=== PATIENT | female | born 1990 | race Caucasian/White ===

== ENCOUNTER 2018-12-11 23:13 | Emergency (ER) | payer OTHER ==
[2018-12-11 23:23] VITALS: BP 119/82
--- NOTE | 2018-12-11 23:33 | ED Physician Documentation ---
PD HPI SKIN - Stated complaint Stated Complaint: FEM /LUMP ON SKIN/PX - Chief complaint Chief Complaint: Wound - History obtained from History obtained from: Patient - History of Present Illness Timing - onset: How many days ago (8) Timing - details: Gradual onset Location: Other (right buttock) Quality / character: Painful, Swelling Associated symptoms: No: Fever Recently seen: Not recently seen Review of Systems Constitutional: denies: Fever, Chills, Sweats Skin: reports: Lesions PD PAST MEDICAL HISTORY - Past Medical History Past Medical History: Yes Psych: Depression - Past Surgical History 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 - Present Medications Home Medications: Ambulatory Orders Medication Instructions Recorded Confirmed Doxycycline Hyclate [Vibramycin] 100 mg PO BID #19 capsule 12/11/18 FLUoxetine [PROzac] 20 mg PO DAILY 12/11/18 12/11/18 Hydrocodone/Acetaminophen 1 - 2 each PO Q6HR PRN #14 tablet 12/11/18 [Hydrocodone-Acetamin 5-325 mg] - Allergies Allergies/Adverse Reactions: Allergies Allergy/AdvReac Type Severity Reaction Status Date / Time No Known Drug Allergies Allergy Verified 12/11/18 23:24 - Social History Does the pt smoke?: No Smoking Status: Never smoker PD ED PE NORMAL - Vitals Vital signs reviewed: Yes - General General: Alert and oriented X 3, No acute distress, Well developed/nourished PD ED PE EXPANDED - Female Female visual: 1 - swelling, tenderness (tender, erythematous swelling without discharge, fluctuance, or palpable margins to suggest abscess) Results - Vitals Vitals: Vital Signs - 24 hr 12/11/18 23:18 Temperature 37.1 C Heart Rate 93 Blood Pressure 119/82 H O2 Saturation 99 Oxygen O2 Source Room air PD MEDICAL DECISION MAKING - ED course Complexity details: considered differential, d/w patient Departure - Departure Disposition: 01 Home, Self Care Clinical Impression: Abscess Condition: Good Instructions: ED Staph Infec Abx Tx Only Follow-Up: Carroll Goncalves MD [Primary Care Provider] - Within 3 Days Prescriptions: Hydrocodone/Acetaminophen [Hydrocodone-Acetamin 5-325 mg] 1 - 2 each PO Q6HR PRN #14 tablet PRN Reason: Pain Doxycycline Hyclate [Vibramycin] 100 mg PO BID #19 capsule Discharge Date/Time: 12/11/18 23:58
[2018-12-11] MEDS ORDERED: DOXYCYCLINE 100 MG TABLET PO STA (23:48)
[2018-12-11] MEDS ORDERED: HYDROcod/ACET 5/325 Prepack 4 PO STA (23:49)
== END 2018-12-11 23:58 | disposition home or self-care (01) ==
LOC: ED 23:13
DX: L02.31 Cutaneous abscess of buttock (principal)
CPT/HCPCS: 99282; 99283

== ENCOUNTER 2019-04-19 13:04 | Emergency (ER) | payer OTHER ==
[2019-04-19 13:33] LABS: BILIRUBIN,URINE NEGATIVE (NEGATIVE); GLUCOSE, URINE (UA) NEGATIVE (NEGATIVE); KETONES,URINE (UA) NEGATIVE (NEGATIVE); LEUKOCYTE ESTERASE, URINE MODERATE (NEGATIVE); NITRITE,URINE NEGATIVE (NEGATIVE); OCCULT BLOOD,URINE NEGATIVE (NEGATIVE); PROTEIN,URINE NEGATIVE (NEGATIVE); UROBILINOGEN,URINE 0.2 (NORMAL) E.U./dL (NORMAL)
[2019-04-19 13:42] LABS: CLARITY,URINE CLEAR (CLEAR)
[2019-04-19 13:43] LABS: BACTERIA,URINE Few /HPF (None Seen); RBC,URINE None Seen /HPF (0-5); SQUAMOUS EPITHELIAL CELL,UR MOD Squamous (<= Few)
--- NOTE | 2019-04-19 14:26 | ED Physician Documentation ---
PD HPI FEMALE - Stated complaint Stated Complaint: FEMALE - Chief complaint Chief Complaint: UTI - History obtained from History obtained from: Patient - History of Present Illness Timing - onset: How many days ago (2-3) Timing - details: Gradual onset Associated symptoms: Back pain, Vaginal discharge, Dysuria, Urinary frequency, Hematuria. No: Fever, Abdominal pain, Pelvic pain, Vaginal pain, Vaginal bleeding, Genital sore/lesion Contributing factors: No: Recently seen: Not recently seen - Additional information Additional information: This is a 28-year-old woman who presents with complaints that she thought she had a yeast infection because she was itchy and had a vaginal discharge about 6 days ago. She was trying to get into see her primary care provider but could not get an appointment and then she started developing increased urination frequency and low back pain in the right side that is now radiating to the left side and "throbbing". She seen a little bit of light pink in the urine which could be blood. Her last menstrual period was a couple of weeks ago and she denies stating that she has an IUD. She denies concern for STDs such as gonorrhea or chlamydia and declines testing for those infections. She is b een a little bit nauseous but no vomiting. Denies fever, cough or sore throat. Review of Systems Constitutional: denies: Fever Throat: denies: Sore throat Respiratory: denies: Cough GI: reports: Nausea. denies: Abdominal Pain, Vomiting : reports: Dysuria, Frequency, Hematuria, Discharge, LMP (2 weeks ago). 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 - Present Medications Home Medications: Ambulatory Orders Medication Instructions Recorded Confirmed Doxycycline Hyclate [Vibramycin] 100 mg PO BID #19 capsule 12/11/18 FLUoxetine [PROzac] 20 mg PO DAILY 12/11/18 12/11/18 Hydrocodone/Acetaminophen 1 - 2 each PO Q6HR PRN #14 tablet 12/11/18 [Hydrocodone-Acetamin 5-325 mg] Nitrofurantoin Monohyd/M-Cryst 100 mg PO BID #20 capsule 04/19/19 [Macrobid 100 mg Capsule] - Allergies Allergies/Adverse Reactions: Allergies Allergy/AdvReac Type Severity Reaction Status Date / Time No Known Drug Allergies Allergy Verified 04/19/19 13:10 - Social History Does the pt smoke?: No Smoking Status: Never smoker PD ED PE NORMAL - Vitals Vital signs reviewed: Yes - General General: Alert and oriented X 3, No acute distress, Well developed/nourished, Other (Obese 28-year-old.) - HEENT HEENT: Atraumatic, Other (No scleral icterus) - Abdomen Abdomen: Normal bowel sounds, Soft, Non tender - Back Back: No CVA TTP - Derm Derm: Normal color, Warm and dry, No rash - Psych Psych: Normal mood, Normal affect Results - Vitals Vitals: Vital Signs - 24 hr 04/19/19 04/19/19 13:10 15:23 Temperature 36.9 C Heart Rate 86 73 Respiratory 17 18 Rate Blood Pressure 124/57 L 130/64 O2 Saturation 99 99 Oxygen O2 Source Room air - Labs Labs: Laboratory Tests 04/19/19 04/19/19 13:26 13:26 Urine Color YELLOW Urine Clarity CLEAR Urine pH 7.0 Ur Specific [place] 1.015 1.015 Urine Protein NEGATIVE Urine Glucose (UA) NEGATIVE Urine Ketones NEGATIVE Urine Occult Blood NEGATIVE Urine Nitrite NEGATIVE Urine Bilirubin NEGATIVE Urine Urobilinogen 0.2 (NORMAL) Ur Leukocyte Esterase MODERATE H Urine RBC None Seen Urine WBC 11-25 H Ur Squamous Epith Cells MOD Squamous H Urine Bacteria Few Ur Microscopic Review INDICATED Urine Culture Comments NOT INDICATED Urine HCG, Qual NEGATIVE PD MEDICAL DECISION MAKING - ED course Complexity details: reviewed results, d/w patient ED course: The urinalysis was contaminated with squamous epithelial cells but there were 11-25 white blood cells per high-power field. She was not . Patient will be treated empirically with Macrobid twice daily for 10 days. Encouraged to drink lots of water and take ibuprofen if needed for pain. She should follow-up with her primary care provider to have the urine retested after finishing the antibiotics. Return if she has worsening back pain, fever, vomiting or other problems arise. She was offered gonorrhea and Chlamydia testing today which she has declined. Departure - Departure Disposition: 01 Home, Self Care Clinical Impression: Urinary tract infection Condition: Good Instructions: ED UTI Cystitis Female Follow-Up: Carroll Goncalves MD [Primary Care Provider] - Prescriptions: Nitrofurantoin Monohyd/M-Cryst [Macrobid 100 mg Capsule] 100 mg PO BID #20 capsule Comments: Drink lots of water. Take ibuprofen if needed for pain. Start the antibiotic today and take it twice a day for 10 days. Follow-up with your primary care provider to make sure that the infection has cleared and retest the urine after finishing the antibiotics. Follow-up sooner if you have increasing back pain, vomiting, fever or other problems arise. Discharge Date/Time: 04/19/19 15:23
[2019-04-19 14:57] LABS: HCG UR QUAL NEGATIVE
[2019-04-19 15:24] VITALS: BP 130/64
== END 2019-04-19 15:23 | disposition home or self-care (01) ==
LOC: ED 13:04
DX: N39.0 Urinary tract infection, site not specified (principal)
CPT/HCPCS: 81001; 81003; 81025; 87086; 99283

== ENCOUNTER 2019-06-07 11:46 | Emergency (ER) | payer OTHER ==
[2019-06-07] MEDS ORDERED: KETOROLAC 30 MG/ML VIAL IVP STA (13:03)
[2019-06-07] MEDS ORDERED: METOCLOPRAMIDE 10 MG/2 ML VIAL IVP STA (13:03)
[2019-06-07] MEDS ORDERED: SODIUM CHLORIDE 0.9% 1,000 ML IV ONE (13:03)
[2019-06-07] MEDS ORDERED: diphenhydrAMINE INJ 50 MG/ML VIAL IVP STA (13:03)
--- NOTE | 2019-06-07 13:06 | ED Physician Documentation ---
PD HPI HEADACHE - Stated complaint Stated Complaint: MIGRAINE/DIZZY - Chief complaint Chief Complaint: Neuro - History obtained from History obtained from: Patient (28-year-old woman with frequent migraines complains of almost a week of headache. The pain is typical but more severe than her usual headaches. She is tried Imitrex and Tylenol and Excedrin without relief. She denies fevers, chills, neck stiffness, body aches. She does comp jennifer of a whooshing in her left ear which is atypical for her headaches. 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 - Present Medications Home Medications: Ambulatory Orders Medication Instructions Recorded Confirmed Doxycycline Hyclate [Vibramycin] 100 mg PO BID #19 capsule 12/11/18 FLUoxetine [PROzac] 20 mg PO DAILY 12/11/18 12/11/18 Hydrocodone/Acetaminophen 1 - 2 each PO Q6HR PRN #14 tablet 12/11/18 [Hydrocodone-Acetamin 5-325 mg] Nitrofurantoin Monohyd/M-Cryst 100 mg PO BID #20 capsule 04/19/19 [Macrobid 100 mg Capsule] Butalb/Acetaminophen/Caffeine 1 each PO QID PRN #10 capsule 06/07/19 [Fioricet 50-300-40 mg Capsule] - Allergies Allergies/Adverse Reactions: Allergies Allergy/AdvReac Type Severity Reaction Status Date / Time No Known Drug Allergies Allergy Verified 06/07/19 11:59 - Social History Does the pt smoke?: No Smoking Status: Never smoker - Immunizations Immunizations are current?: Yes - POLST Patient has POLST: No PD ED PE NORMAL - Vitals Vital signs reviewed: Yes - General General: Alert and oriented X 3, Other (She appears uncomfortable, light sensitive) - HEENT HEENT: Other (Left TM is normal and there is no bruit in the neck) - Neck Neck: Supple, no meningeal sign - Cardiac Cardiac: RRR, No murmur - Respiratory Respiratory: No respiratory distress, Clear bilaterally - Abdomen Abdomen: Non tender - Derm Derm: Normal color, Warm and dry - Extremities Extremities: No edema, No calf tenderness / cord - Neuro Neuro: Alert and oriented X 3, No motor deficit, No sensory deficit, Normal speech Results - Vitals Vitals: Vital Signs - 24 hr 06/07/19 11:59 Temperature 36.6 C Heart Rate 69 Respiratory 16 Rate Blood Pressure 139/71 H O2 Saturation 98 Oxygen O2 Source Room air PD MEDICAL DECISION MAKING - ED course ED course: The headache is gradual in onset and similar to prior headaches. As such I doubt subarachnoid hemorrhage. There are no infectious symptoms such as fever or stiff neck to make me suspect meningitis. No carbon monoxide exposure by history. After the administration of Reglan, Toradol, Benadryl IV she was pain-free and her neck remained supple. Departure - Departure Disposition: 01 Home, Self Care Clinical Impression: Migraine Qualifiers: Migraine type: without aura Status migrainosus presence: with status migrainosus Intractability: not intractable Qualified Code(s): G43.001 - Migraine without aura, not intractable, with status migrainosus Condition: Good Record reviewed to determine appropriate education?: Yes Instructions: ED Headache Migraine Prescriptions: Butalb/Acetaminophen/Caffeine [Fioricet 50-300-40 mg Capsule] 1 each PO QID PRN #10 capsule PRN Reason: Headache Comments: Call your doctor to arrange a follow-up appointment, make the next available appointment. In the interim, return anytime if worse or if new symptoms develop.
[2019-06-07 14:17] VITALS: BP 133/67
== END 2019-06-07 14:17 | disposition home or self-care (01) ==
LOC: ED 11:46
DX: G43.001 Migraine without aura, not intractable, with status migrainosus (principal)
CPT/HCPCS: 96361; 96374; 96375; 99283; 99284; J1200; J2765

== ENCOUNTER 2020-02-20 11:45 | Emergency (ER) | payer OTHER ==
[2020-02-20] MEDS ORDERED: KETOROLAC 30 MG/ML VIAL IVP STA (12:09)
[2020-02-20] MEDS ORDERED: ONDANSETRON 4 MG/2 ML VIAL IVP STA (12:09)
--- NOTE | 2020-02-20 12:12 | ED Physician Documentation ---
PD HPI ABD PAIN - Stated complaint Stated Complaint: RT RIB PAIN - Chief complaint Chief Complaint: Abd Pain - History obtained from History obtained from: Patient - Additional information Additional information: About a weeks worth of generally worsening right upper quadrant pain that does not seem to change with eating, now with nausea. No history of abdominal surgeries. Pain radiates to the back a little bit. Review of Systems Ten Systems: 10 systems reviewed and negative Constitutional: denies: Fever, Chills Cardiac: denies: Chest pain / pressure, Palpitations Respiratory: denies: Dyspnea, Cough GI: reports: Abdominal Pain, Nausea. 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 - Present Medications Home Medications: Ambulatory Orders Medication Instructions Recorded Confirmed Doxycycline Hyclate [Vibramycin] 100 mg PO BID #19 capsule 12/11/18 FLUoxetine [PROzac] 20 mg PO DAILY 12/11/18 12/11/18 Hydrocodone/Acetaminophen 1 - 2 each PO Q6HR PRN #14 tablet 12/11/18 [Hydrocodone-Acetamin 5-325 mg] Nitrofurantoin Monohyd/M-Cryst 100 mg PO BID #20 capsule 04/19/19 [Macrobid 100 mg Capsule] Butalb/Acetaminophen/Caffeine 1 each PO QID PRN #10 capsule 06/07/19 [Fioricet 50-300-40 mg Capsule] Ondansetron Odt [Zofran] 4 mg TL Q6H PRN #10 tablet 02/20/20 Oxycodone HCl/Acetaminophen 1 - 2 each PO Q6H PRN #14 tablet 02/20/20 [Percocet 5-325 mg Tablet] - Allergies Allergies/Adverse Reactions: Allergies Allergy/AdvReac Type Severity Reaction Status Date / Time No Known Drug Allergies Allergy Verified 02/20/20 11:52 - Social History Does the pt smoke?: No Smoking Status: Never smoker - Immunizations Immunizations are current?: Yes - POLST Patient has POLST: No PD ED PE NORMAL - Vitals Vital signs reviewed: Yes - General General: Alert and oriented X 3, No acute distress - HEENT HEENT: PERRL, EOMI - Neck Neck: Supple, no meningeal sign, No bony TTP - Cardiac Cardiac: RRR, No murmur - Respiratory Respiratory: No respiratory distress, Clear bilaterally - Abdomen Abdomen: Soft, Other (TTP RUQ with pos [place]) - Back Back: No CVA TTP, No spinal TTP - Derm Derm: Normal color, Warm and dry - Extremities Extremities: No edema, No calf tenderness / cord - Neuro Neuro: Alert and oriented X 3 Results - Vitals Vitals: Vital Signs - 24 hr 02/20/20 02/20/20 02/20/20 11:49 12:42 13:26 Temperature 37.0 C Heart Rate 72 72 55 L Respiratory 18 16 15 Rate Blood Pressure 123/60 119/62 103/68 O2 Saturation 98 98 100 02/20/20 14:33 Temperature Heart Rate 54 L Respiratory 16 Rate Blood Pressure 98/65 O2 Saturation 96 Oxygen O2 Source Room air - Labs Labs: Laboratory Tests 02/20/20 02/20/20 02/20/20 12:04 12:20 12:20 WBC 5.8 RBC 4.39 Hgb 12.8 Hct 38.9 MCV 88.6 MCH 29.2 MCHC 32.9 RDW 14.4 Plt Count 290 MPV 10.2 Neut # (Auto) 3.3 Lymph # (Auto) 2.0 [place] # (Auto) 0.4 Eos # (Auto) 0.1 Baso # (Auto) 0.0 Absolute Nucleated RBC 0.00 Nucleated RBC % 0.0 Sodium 138 Potassium 3.9 Chloride 104 Carbon Dioxide 26 Anion Gap 8.0 BUN 16 Creatinine 0.8 Estimated GFR (MDRD) 86 L Glucose 97 Calcium 9.5 Total Bilirubin 0.6 AST 15 ALT 17 Alkaline Phosphatase 44 Total Protein 7.5 Albumin 4.3 Globulin 3.2 Albumin/Globulin Ratio 1.3 Lipase 44 Urine Color DARK YELLOW Urine Clarity SL. CLOUDY Urine pH 6.5 Ur Specific [place] 1.025 Urine Protein NEGATIVE Urine Glucose (UA) NEGATIVE Urine Ketones 15 H Urine Occult Blood NEGATIVE Urine Nitrite NEGATIVE Urine Bilirubin SMALL H Urine Urobilinogen 1 (NORMAL) Ur Leukocyte Esterase NEGATIVE Urine RBC None Seen Urine WBC 0-3 Ur Squamous Epith Cells MANY Squamous H Urine Bacteria Rare Ur Microscopic Review INDICATED Urine Culture Comments NOT INDICATED Urine HCG, Qual NEGATIVE - Rads (name of study) RUQ son Radiology: EMP read contemporaneously (NAD) PD MEDICAL DECISION MAKING - ED course ED course: 29yo F what seemed like gallbladder pain on the face of it, that said her labs and ultrasound were normal so this was followed up with an extended differential diagnosis including PE and other intra-abdominal abnormalities with a CTA of the chest and abdomen CT which were also negative. Departure - Departure Disposition: Home, Self Care Clinical Impression: Abdominal pain Qualifiers: Abdominal location: right upper quadrant Qualified Code(s): R10.11 - Right upper quadrant pain Condition: Good Record reviewed to determine appropriate education?: Yes Instructions: ED Abdominal Pain Unkn Cause Prescriptions: Oxycodone HCl/Acetaminophen [Percocet 5-325 mg Tablet] 1 - 2 each PO Q6H PRN #14 tablet PRN Reason: pain Ondansetron Odt [Zofran] 4 mg TL Q6H PRN #10 tablet PRN Reason: Nausea / Vomiting Comments: Return if pain does not improve quickly, Or for any new or worsening symptoms.
[2020-02-20 12:22] LABS: BILIRUBIN,URINE SMALL (NEGATIVE); GLUCOSE, URINE (UA) NEGATIVE (NEGATIVE); KETONES,URINE (UA) 15 mg/dL (NEGATIVE); LEUKOCYTE ESTERASE, URINE NEGATIVE (NEGATIVE); NITRITE,URINE NEGATIVE (NEGATIVE); OCCULT BLOOD,URINE NEGATIVE (NEGATIVE); PH,URINE 6.5 PH (5.0-7.5); PROTEIN,URINE NEGATIVE (NEGATIVE); UROBILINOGEN,URINE 1 (NORMAL) E.U./dL (NORMAL)
[2020-02-20 12:26] LABS: BASOPHILS % (AUTO) 0.3 %; EOSINOPHILS # (AUTO) 0.1 10^3/uL (0.0-0.7); EOSINOPHILS % (AUTO) 2.1 %; HGB - HEMOGLOBIN 12.8 g/dL (12.0-16.0); LYMPHOCYTES % (AUTO) 33.9 %; MEAN CORPUSCULAR HEMOGLOBIN 29.2 pg (27.0-31.0); MEAN CORPUSCULAR HGB CONC 32.9 g/dL (32.0-36.0); MEAN CORPUSCULAR VOLUME 88.6 fL (81.0-99.0); MEAN PLATELET VOLUME 10.2 fL (7.9-10.8); MONOCYTES # (AUTO) 0.4 10^3/uL (0.0-1.0); MONOCYTES % (AUTO) 6.9 %; NEUTROPHILS # (AUTO) 3.3 10^3/uL (1.5-6.6); NEUTROPHILS % (AUTO) 56.6 %; PLT - PLATELET COUNT 290 10^3/uL (130-450); RED BLOOD COUNT 4.39 10^6/uL (4.20-5.40); RED CELL DISTRIBUTION WIDTH 14.4 % (12.0-15.0); WHITE BLOOD COUNT 5.8 x10^3/uL (4.8-10.8)
[2020-02-20 12:28] LABS: CLARITY,URINE SL. CLOUDY (CLEAR); HCG UR QUAL NEGATIVE
[2020-02-20 12:36] LABS: BACTERIA,URINE Rare /HPF (None Seen); RBC,URINE None Seen /HPF (0-5); SQUAMOUS EPITHELIAL CELL,UR MANY Squamous (<= Few)
[2020-02-20] MEDS ORDERED: SODIUM CHLORIDE 0.9% 1,000 ML IV STA (12:36)
[2020-02-20 12:41] LABS: ALBUMIN 4.3 g/dL (3.2-5.5); ALBUMIN/GLOBULIN RATIO 1.3 (1.0-2.2); BILIRUBIN,TOTAL 0.6 mg/dL (0.2-1.0); CALCIUM 9.5 mg/dL (8.5-10.3); CREATININE 0.8 mg/dL (0.4-1.0); TOTAL PROTEIN 7.5 g/dL (6.7-8.2)
[2020-02-20] MEDS ORDERED: HYDROmorphone 1 MG/ML CARPUJECT IVP STA ×2 (12:48→13:49)
--- NOTE | 2020-02-20 13:59 | Ultrasound Report ---
PROCEDURE: Abdomen Limited INDICATIONS: RUQ pain TECHNIQUE: Real-time focused scanning was performed of the abdomen, with image documentation. COMPARISON: None. FINDINGS: Normal sonographic appearance of the liver, gallbladder, bile ducts, pancreas, spleen, and right kidney. IMPRESSION: Normal right upper quadrant abdominal ultrasound. No findings of cholelithiasis or cholecystitis. Reviewed by: Armando Travis MD on 02/20/2020 1:58 PM PST Approved by: Armando Travis MD on 02/20/2020 1:58 PM PST Station ID: [id number]
[2020-02-20] MEDS ORDERED: IOVERSOL 320 100 ML VIAL IVP ONE ×2 (14:50→17:28)
--- NOTE | 2020-02-20 15:21 | CT Report ---
PROCEDURE: ANGIO CHEST W/WO INDICATIONS: Right-sided chest pain CONTRAST: IV CONTRAST: Optiray 320 ml: 100 PO CONTRAST: *NO PO CONTRAST TECHNIQUE: After the administration of intravenous contrast, 2 mm thick sections acquired from the pulmonary api cherri to the posterior costophrenic angles. 3-dimensional maximum intensity projection (MIP) coronal a nd sagittal reformats were then acquired through the thorax. For radiation dose reduction, the follow ing was used: automated exposure control, adjustment of mA and/or kV according to patient size. COMPARISON: None FINDINGS: Image quality: Excellent. Pulmonary arteries: Pulmonary arteries are normal in size, and demonstrate no intraluminal filling d efects to suggest central pulmonary embolism. Lungs and pleura: Lungs are clear. No pleural effusions or pneumothorax. Central and peripheral ai rways are patent. Mediastinum: Heart size is normal, without pericardial effusion. No mediastinal or hilar adenopathy . Thoracic aorta is normal in caliber and enhancement. Esophagus is normal in caliber, without hiat al hernia. Bones and chest wall: No suspicious bony lesions. Ribs and thoracic spine appear intact throughout. The thyroid is normal. No axillary or supraclavicular adenopathy. Abdomen: Visualized upper abdominal solid organs appear normal in the early arterial phase of enhanc ement. IMPRESSION: No acute finding. Reviewed by: Armando Travis MD on 02/20/2020 3:20 PM [facility] Approved by: Armando Travis MD on 02/20/2020 3:20 PM PST Station ID: [id number]
--- NOTE | 2020-02-20 15:23 | CT Report ---
PROCEDURE: Abdomen/Pelvis W INDICATIONS: IV only, RUQ pain, neg sono CONTRAST: IV CONTRAST: Optiray 320 ml: 100 PO CONTRAST: *NO PO CONTRAST TECHNIQUE: After the administration of intravenous contrast, 5 mm thick sections acquired from the diaphragms to the symphysis. 5 mm thick coronal and sagittal reformats were acquired. For radiation dose reducti on, the following was used: automated exposure control, adjustment of mA and/or kV according to igor ent size. COMPARISON: None. FINDINGS: Image quality: Excellent. ABDOMEN: Lung bases: Lung bases are clear. Heart size is normal. Solid organs: Liver and spleen are within normal limits. Gallbladder is normal. Biliary system is n on dilated. Pancreas enhances normally. No adrenal nodules. Kidneys demonstrate normal size and en hancement, without hydronephrosis. Peritoneum and bowel: Bowel loops demonstrate normal wall thickness and caliber. No free fluid or a ir. Nodes and vessels: No retroperitoneal or mesenteric adenopathy by size criteria. Aorta and inferior vena cava are normal in size. Miscellaneous: No ventral hernias. PELVIS: Genitourinary: Bladder wall thickness is normal. Miscellaneous: No inguinal hernias or adenopathy. Bones: No suspicious bony lesions. No vertebral body compression fractures. IMPRESSION: No acute abnormality or finding to explain pain. Reviewed by: Armando Travis MD on 02/20/2020 3:22 PM PST Approved by: Armando Travis MD on 02/20/2020 3:22 PM PST Station ID: [id number]
[2020-02-20 15:51] VITALS: BP 119/60
== END 2020-02-20 16:05 | disposition home or self-care (01) ==
LOC: ED 11:45
DX: R10.11 Right upper quadrant pain (principal)
CPT/HCPCS: 36415; 71275; 74177; 76705; 80053; 81001; 81025; 83690; 85025; 96374; 96375; 96376; 99284; 99285; J1170; Q9967; 81003; 87086

== ENCOUNTER 2020-06-17 18:56 | Emergency (ER) | payer OTHER ==
[2020-06-17] MEDS ORDERED: SODIUM CHLORIDE 0.9% 1,000 ML IV STA (19:09)
[2020-06-17 19:33] LABS: BILIRUBIN,URINE NEGATIVE (NEGATIVE); GLUCOSE, URINE (UA) NEGATIVE (NEGATIVE); KETONES,URINE (UA) TRACE mg/dL (NEGATIVE); LEUKOCYTE ESTERASE, URINE TRACE (NEGATIVE); NITRITE,URINE NEGATIVE (NEGATIVE); OCCULT BLOOD,URINE TRACE-INTA (NEGATIVE); PROTEIN,URINE NEGATIVE (NEGATIVE); UROBILINOGEN,URINE 0.2 (NORMAL) E.U./dL (NORMAL)
[2020-06-17 19:35] LABS: CLARITY,URINE HAZY (CLEAR); HCG UR QUAL NEGATIVE
[2020-06-17 19:42] LABS: BACTERIA,URINE Rare /HPF (None Seen); RBC,URINE 0-5 /HPF (0-5); SQUAMOUS EPITHELIAL CELL,UR MOD Squamous (<= Few)
--- NOTE | 2020-06-17 20:02 | ED Physician Documentation ---
History of Present Illness - Stated complaint Stated Complaint: DIARRHEA,PASSED OUT - Chief complaint Chief Complaint: Abd Pain - History obtained from History obtained from: Patient - History of Present Illness Timing: Today Pain level max: 5 Pain level now: 5 - Additonal information Additional information: 29-year-old female states she has had diarrhea today. She states no vomiting occasional nausea. While she was having diarrhea she had abdominal cramping and thinks that she may have passed out on the toilet. Did not strike her head. No neck or back pain. Denies any possibility of . No fevers. No chills. No recent travel. No recent antibiotics. Nothing makes it better or worse Review of Systems Constitutional: denies: Fever, Chills Nose: denies: Rhinorrhea / runny nose, Congestion Cardiac: denies: Chest pain / pressure Respiratory: denies: Cough GI: reports: Diarrhea. 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 : None HEENT: None Psych: Depression Musculoskeletal: None Derm: None - Past Surgical History Past Surgical History: Yes /SCHOOL COUNSELLOR: Other - Present Medications Home Medications: Ambulatory Orders Medication Instructions Recorded Confirmed Doxycycline Hyclate [Vibramycin] 100 mg PO BID #19 capsule 12/11/18 FLUoxetine [PROzac] 20 mg PO DAILY 12/11/18 12/11/18 Hydrocodone/Acetaminophen 1 - 2 each PO Q6HR PRN #14 tablet 12/11/18 [Hydrocodone-Acetamin 5-325 mg] Nitrofurantoin Monohyd/M-Cryst 100 mg PO BID #20 capsule 04/19/19 [Macrobid 100 mg Capsule] Butalb/Acetaminophen/Caffeine 1 each PO QID PRN #10 capsule 06/07/19 [Fioricet 50-300-40 mg Capsule] Ondansetron Odt [Zofran] 4 mg TL Q6H PRN #10 tablet 02/20/20 Oxycodone HCl/Acetaminophen 1 - 2 each PO Q6H PRN #14 tablet 02/20/20 [Percocet 5-325 mg Tablet] Hyoscyamine Sulfate [Levsin-Sl] 0.125 mg SL Q6H PRN #10 06/17/20 Ondansetron Odt [Zofran] 4 mg TL Q6H PRN #10 tablet 06/17/20 - Allergies Allergies/Adverse Reactions: Allergies Allergy/AdvReac Type Severity Reaction Status Date / Time No Known Drug Allergies Allergy Verified 06/17/20 19:01 - Social History Does the pt smoke?: No Smoking Status: Never smoker Does the pt drink ETOH?: No Does the pt have substance abuse?: No - Immunizations Immunizations are current?: Yes - POLST Patient has POLST: No PD ED PE NORMAL - Vitals Vital signs reviewed: Yes - General General: Alert and oriented X 3, No acute distress - HEENT HEENT: Moist mucous membranes - Neck Neck: Supple, no meningeal sign - Cardiac Cardiac: RRR - Respiratory Respiratory: No respiratory distress, Clear bilaterally - Abdomen Abdomen: Soft, Non tender, Non distended - Derm Derm: Warm and dry - Neuro Neuro: Alert and oriented X 3 - Psych Psych: Normal mood, Normal affect Results - Vitals Vitals: Vital Signs - 24 hr 06/17/20 06/17/20 06/17/20 19:02 19:06 21:01 Temperature 37.4 C 37.2 C Heart Rate 69 68 53 L Respiratory 18 21 18 Rate Blood Pressure 116/64 111/67 112/76 O2 Saturation 100 98 100 Oxygen O2 Source Room air - EKG (time done) 1934 Rate: Rate (enter#) (56) Rhythm: NSR [place]: Normal Intervals: Normal [place] QRS: Normal Ischemia: Normal ST segments - Labs Labs: Laboratory Tests 06/17/20 06/17/20 06/17/20 19:19 20:00 20:00 WBC 7.9 RBC 4.11 L Hgb 12.0 Hct 36.8 L MCV 89.5 MCH 29.2 MCHC 32.6 RDW 13.8 Plt Count 231 MPV 11.0 H Neut # (Auto) 5.7 Lymph # (Auto) 1.6 [place] # (Auto) 0.5 Eos # (Auto) 0.1 Baso # (Auto) 0.0 Absolute Nucleated RBC 0.00 Nucleated RBC % 0.0 Sodium 136 Potassium 3.8 Chloride 103 Carbon Dioxide 22 Anion Gap 11.0 BUN 15 Creatinine 0.8 Estimated GFR (MDRD) 86 L Glucose 89 Calcium 9.5 Total Bilirubin 0.3 AST 18 ALT 20 Alkaline Phosphatase 43 Total Protein 6.9 Albumin 4.1 Globulin 2.8 Albumin/Globulin Ratio 1.5 Lipase 31 Urine Color YELLOW Urine Clarity HAZY Urine pH 6.0 Ur Specific [place] 1.025 Urine Protein NEGATIVE Urine Glucose (UA) NEGATIVE Urine Ketones TRACE Urine Occult Blood TRACE-INTA Urine Nitrite NEGATIVE Urine Bilirubin NEGATIVE Urine Urobilinogen 0.2 (NORMAL) Ur Leukocyte Esterase TRACE H Urine RBC 0-5 Urine WBC 4-5 Ur Squamous Epith Cells MOD Squamous H Urine Bacteria Rare Ur Microscopic Review INDICATED Urine Culture Comments NOT INDICATED Urine HCG, Qual NEGATIVE PD MEDICAL DECISION MAKING - ED course Complexity details: reviewed results, re-evaluated patient, considered differential, d/w patient ED course: Patient given IV fluids, IV Ofirmev, Zofran. Symptoms resolved. She feels much better. No significant lab abnormalities. No chest pain. No evidence of PE. Appears to be a viral illness. Abdomen is soft, nontender nondistended on serial exam. Patient counseled regarding signs and symptoms for which I believe and urgent re-evaluation would be necessary. Patient with good understanding of and agreement to plan and is comfortable going home at this time This document was made in part using voice recognition software. While efforts are made to proofread this document, sound alike and grammatical errors may occur. Departure - Departure Disposition: 01 Home, Self Care Clinical Impression: Dehydration, Vasovagal syncope Diarrhea Qualifiers: Diarrhea type: unspecified type Qualified Code(s): R19.7 - Diarrhea, unspecified Condition: Good Instructions: ED Dehydration, ED Diet Vomiting Diarrhea, ED Syncope Vasovagal Follow-Up: PAIGE VILLALTA ARNP [Primary Care Provider] - Within 1 week Prescriptions: Hyoscyamine Sulfate [Levsin-Sl] 0.125 mg SL Q6H PRN #10 PRN Reason: Abdominal Pain Ondansetron Odt [Zofran] 4 mg TL Q6H PRN #10 tablet PRN Reason: Nausea / Vomiting Comments: Drink plenty of fluids. Return if you worsen. This should improve over the next 24 to 48 hours. Discharge Date/Time: 06/17/20 21:54
[2020-06-17 20:16] LABS: BASOPHILS % (AUTO) 0.4 %; EOSINOPHILS # (AUTO) 0.1 10^3/uL (0.0-0.7); EOSINOPHILS % (AUTO) 0.8 %; HCT - HEMATOCRIT 36.8 % (37.0-47.0); LYMPHOCYTES # (AUTO) 1.6 10^3/uL (1.5-3.5); LYMPHOCYTES % (AUTO) 20.6 %; MEAN CORPUSCULAR HEMOGLOBIN 29.2 pg (27.0-31.0); MEAN CORPUSCULAR HGB CONC 32.6 g/dL (32.0-36.0); MEAN CORPUSCULAR VOLUME 89.5 fL (81.0-99.0); MONOCYTES # (AUTO) 0.5 10^3/uL (0.0-1.0); MONOCYTES % (AUTO) 5.9 %; NEUTROPHILS # (AUTO) 5.7 10^3/uL (1.5-6.6); PLT - PLATELET COUNT 231 10^3/uL (130-450); RED BLOOD COUNT 4.11 10^6/uL (4.20-5.40); RED CELL DISTRIBUTION WIDTH 13.8 % (12.0-15.0); WHITE BLOOD COUNT 7.9 x10^3/uL (4.8-10.8)
[2020-06-17] MEDS ORDERED: ONDANSETRON 4 MG/2 ML VIAL IVP STA (20:18)
[2020-06-17] MEDS ORDERED: DICYCLOMINE 10 MG CAPSULE PO STA (20:19)
[2020-06-17 20:27] LABS: ALBUMIN 4.1 g/dL (3.2-5.5); ALBUMIN/GLOBULIN RATIO 1.5 (1.0-2.2); BILIRUBIN,TOTAL 0.3 mg/dL (0.2-1.0); CALCIUM 9.5 mg/dL (8.5-10.3); CREATININE 0.8 mg/dL (0.4-1.0); POTASSIUM 3.8 mmol/L (3.5-5.0); TOTAL PROTEIN 6.9 g/dL (6.7-8.2)
[2020-06-17] MEDS ORDERED: ACETAMINOPHEN 1,000 MG/100 ML 100 ML IV ONE (20:52)
[2020-06-17 21:02] VITALS: BP 112/76
== END 2020-06-17 21:54 | disposition home or self-care (01) ==
LOC: ED 18:56
DX: E86.0 Dehydration (principal); R19.7 Diarrhea, unspecified; R55 Syncope and collapse
CPT/HCPCS: 36415; 80053; 81001; 81025; 83690; 85025; 93005; 96361; 96365; 96375; 99284; A9270; J0131; 81003; 87086

== ENCOUNTER 2021-04-13 19:06 | Emergency (ER) | payer OTHER ==
--- NOTE | 2021-04-13 19:57 | ED Physician Documentation ---
History of Present Illness - Stated complaint Stated Complaint: CHEST PAINS - Chief complaint Chief Complaint: Resp - Additonal information Additional information: 30-year-old female presents emergency department for evaluate of acute pleuritic left-sided chest pain with radiation to her left arm. She describes a tingling sensation. Pain is worse when she takes a deep breath. No recent cough or fevers, no nausea or vomiting. No previous history of pulmonary or cardiac disorders. Pain began about 15 to 20 minutes prior to arrival. Patient has the copper ParaGard in place. She is fully vaccinated for COVID-19 but her is COVID-positive at home. She has no COVID symptoms. Review of Systems Constitutional: denies: Fever Eyes: reports: Reviewed and negative Nose: reports: Reviewed and negative Throat: reports: Reviewed and negative Cardiac: reports: Chest pain / pressure. 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: None : None HEENT: None Psych: Depression Musculoskeletal: None Derm: None - Past Surgical History Past Surgical History: Yes /ASSOCIATE PROFESSOR OF BIOSTATISTICS: Other - Present Medications Home Medications: Ambulatory Orders Medication Instructions Recorded Confirmed Doxycycline Hyclate [Vibramycin] 100 mg PO BID #19 capsule 12/11/18 FLUoxetine [PROzac] 20 mg PO DAILY 12/11/18 12/11/18 Hydrocodone/Acetaminophen 1 - 2 each PO Q6HR PRN #14 tablet 12/11/18 [Hydrocodone-Acetamin 5-325 mg] Nitrofurantoin Monohyd/M-Cryst 100 mg PO BID #20 capsule 04/19/19 [Macrobid 100 mg Capsule] Butalb/Acetaminophen/Caffeine 1 each PO QID PRN #10 capsule 06/07/19 [Fioricet 50-300-40 mg Capsule] Ondansetron Odt [Zofran] 4 mg TL Q6H PRN #10 tablet 02/20/20 Oxycodone HCl/Acetaminophen 1 - 2 each PO Q6H PRN #14 tablet 02/20/20 [Percocet 5-325 mg Tablet] Hyoscyamine Sulfate [Levsin-Sl] 0.125 mg SL Q6H PRN #10 06/17/20 Ondansetron Odt [Zofran] 4 mg TL Q6H PRN #10 tablet 06/17/20 - Allergies Allergies/Adverse Reactions: Allergies Allergy/AdvReac Type Severity Reaction Status Date / Time No Known Drug Allergies Allergy Verified 06/17/20 19:01 - Social History Does the pt smoke?: No Smoking Status: Never smoker Does the pt drink ETOH?: No Does the pt have substance abuse?: No - Immunizations Immunizations are current?: Yes - POLST Patient has POLST: No PD ED PE NORMAL - General General: Alert and oriented X 3, No acute distress - HEENT HEENT: PERRL - Neck Neck: Supple, no meningeal sign, No adenopathy - Cardiac Cardiac: RRR, No murmur, No gallop, Other (Chest pain is not reproducible with palpation.) - Respiratory Respiratory: Clear bilaterally - Abdomen Abdomen: Normal bowel sounds, Soft, Non tender, Non distended - Back Back: No CVA TTP, No spinal TTP - Derm Derm: Normal color, Warm and dry, No rash - Extremities Extremities: No deformity, No tenderness to palpate, Normal ROM s pain Results - Vitals Vitals: Vital Signs - 24 hr 04/13/21 04/13/21 04/13/21 19:31 20:34 21:37 Temperature 37.2 C Heart Rate 63 64 57 L Respiratory 15 17 17 Rate Blood Pressure 134/82 H 122/72 117/81 H O2 Saturation 98 100 100 Oxygen O2 Source room - EKG (time done) 1945 Rate: Rate (enter#) (62) Rhythm: NSR [place]: Normal Intervals: Normal [place] QRS: Normal Ischemia: Normal ST segments Compare to prior EKG: Old EKG unavailable Computer interpretation: Agree with computer - Labs Labs: Laboratory Tests 04/13/21 04/13/21 04/13/21 20:08 20:08 20:08 WBC 6.9 RBC 3.99 L Hgb 11.5 L Hct 34.6 L MCV 86.7 MCH 28.8 MCHC 33.2 RDW 14.0 Plt Count 223 MPV 10.2 Neut # (Auto) 3.2 Lymph # (Auto) 3.1 [place] # (Auto) 0.5 Eos # (Auto) 0.1 Baso # (Auto) 0.0 Absolute Nucleated RBC 0.00 Nucleated RBC % 0.0 D-Dimer Sodium 134 L Potassium 3.5 Chloride 100 L Carbon Dioxide 25 Anion Gap 9.0 BUN 13 Creatinine 0.6 Estimated GFR (MDRD) 119 Glucose 84 Calcium 9.4 Total Bilirubin 0.7 AST 15 ALT 17 Alkaline Phosphatase 36 L Troponin I High Sens 2.5 Total Protein 7.2 Albumin 4.1 Globulin 3.1 Albumin/Globulin Ratio 1.3 Lipase 53 H Serum HCG, Qual 04/13/21 04/13/21 04/13/21 20:08 20:08 21:07 WBC RBC Hgb Hct MCV MCH MCHC RDW Plt Count MPV Neut # (Auto) Lymph # (Auto) [place] # (Auto) Eos # (Auto) Baso # (Auto) Absolute Nucleated RBC Nucleated RBC % D-Dimer < 200.0 L Sodium Potassium Chloride Carbon Dioxide Anion Gap BUN Creatinine Estimated GFR (MDRD) Glucose Calcium Total Bilirubin AST ALT Alkaline Phosphatase Troponin I High Sens 2.5 Total Protein Albumin Globulin Albumin/Globulin Ratio Lipase Serum HCG, Qual NEGATIVE PD MEDICAL DECISION MAKING - ED course Complexity details: reviewed results, re-evaluated patient, considered differential, d/w patient ED course: 30-year-old female presented to the emergency department for evaluation of acute onset pleuritic left-sided chest pain with radiation to her arm. It occurred about 15 to 30 minutes prior to arrival. No history of similar in the past. No history of hypertension or diabetes. She is fully vaccinated for COVID as is her who has COVID at home right now. Screening EKG and chest x-ray were unremarkable. Troponin was also negative. Given the pleuritic nature of her chest pain a D-dimer was completed and was also negative. very low probability of acs or PE. I did offer the patient COVID screening but she is declining that at this time. We discussed that in the absence of acute findings on x-ray or laboratory imaging that the most likely cause of her pain was simply a pleurisy. She felt markedly improved after administration of Toradol and I have advised her to use ibuprofen at home for any further discomfort. Emergent return precautions were discussed for worsening symptoms. Departure - Departure Disposition: Home, Self Care Clinical Impression: Chest pain Qualifiers: Chest pain type: unspecified Qualified Code(s): R07.9 - Chest pain, unspecified Condition: Stable Record reviewed to determine appropriate education?: Yes Instructions: ED Chest Pain Pleurisy Comments: You were seen in the emergency department for sudden onset pleuritic chest pain. This pain does radiate to your arm and is worse when you take a deep breath. Your screening chest x-ray, labs, EKG are all essentially normal. We did do a test called a D-dimer to evaluate your risk of forming clots abnormally and this was normal. With this and your history we can say with nearly 99% certainty that the cause of the pain in your chest is not a blood clot. Your troponin and EKG are normal and given your age this is not secondary to myocardial ischemia. The chest x-ray does not show any pneumonia or punctured lung. It is possible that you simply have a condition called pleurisy which is a mild inflammation of the lining of your lung. This can make breathing difficult. In general the recommendation is that you take ibuprofen 600 mg with food 2-3 times a day most of the time this condition begins to resolve over 4 to 5 days. If at any point you find that your symptoms are worsening, you have fainting episodes, you cannot catch your breath, Or you have severe respiratory distress then please return immediately to the ER for a second evaluation.
[2021-04-13 20:11] LABS: BASOPHILS % (AUTO) 0.4 %; EOSINOPHILS # (AUTO) 0.1 10^3/uL (0.0-0.7); EOSINOPHILS % (AUTO) 0.9 %; HCT - HEMATOCRIT 34.6 % (37.0-47.0); HGB - HEMOGLOBIN 11.5 g/dL (12.0-16.0); LYMPHOCYTES # (AUTO) 3.1 10^3/uL (1.5-3.5); LYMPHOCYTES % (AUTO) 44.7 %; MEAN CORPUSCULAR HEMOGLOBIN 28.8 pg (27.0-31.0); MEAN CORPUSCULAR HGB CONC 33.2 g/dL (32.0-36.0); MEAN CORPUSCULAR VOLUME 86.7 fL (81.0-99.0); MEAN PLATELET VOLUME 10.2 fL (7.9-10.8); MONOCYTES # (AUTO) 0.5 10^3/uL (0.0-1.0); MONOCYTES % (AUTO) 7.1 %; NEUTROPHILS # (AUTO) 3.2 10^3/uL (1.5-6.6); NEUTROPHILS % (AUTO) 46.6 %; PLT - PLATELET COUNT 223 10^3/uL (130-450); RED BLOOD COUNT 3.99 10^6/uL (4.20-5.40); WHITE BLOOD COUNT 6.9 x10^3/uL (4.8-10.8)
--- NOTE | 2021-04-13 20:22 | XRAY Report ---
PROCEDURE: Chest 1 View X-Ray INDICATIONS: chest pain TECHNIQUE: One view of the chest was acquired. COMPARISON: CT angiogram chest dated 02/20/2020. FINDINGS: Surgical changes and devices: None. Lungs and pleura: No pleural effusions or pneumothorax. Lungs are clear. Mediastinum: Mediastinal contours appear normal. Heart size is normal. Bones and chest wall: No suspicious bony lesions. Overlying soft tissues appear unremarkable. IMPRESSION: Chest without acute cardiopulmonary abnormalities. No focal airspace disease. Reviewed by: Yosi Abebe MD on 04/13/2021 8:21 PM PST Approved by: Yosi Abebe MD on 04/13/2021 8:21 PM PST Station ID: [id number]
[2021-04-13 20:27] LABS: ALBUMIN 4.1 g/dL (3.2-5.5); ALBUMIN/GLOBULIN RATIO 1.3 (1.0-2.2); BILIRUBIN,TOTAL 0.7 mg/dL (0.2-1.0); CALCIUM 9.4 mg/dL (8.5-10.3); CREATININE 0.6 mg/dL (0.4-1.0); POTASSIUM 3.5 mmol/L (3.5-5.0); TOTAL PROTEIN 7.2 g/dL (6.7-8.2)
[2021-04-13 20:49] LABS: HCG,QUALITATIVE BLOOD NEGATIVE
[2021-04-13] MEDS ORDERED: KETOROLAC 60 MG/2 ML VIAL IM STA (20:59)
[2021-04-13 21:38] VITALS: BP 117/81
== END 2021-04-13 21:50 | disposition home or self-care (01) ==
LOC: ED 19:06
DX: R07.89 Other chest pain (principal); M79.602 Pain in left arm
CPT/HCPCS: 36415; 80053; 83690; 84484; 84703; 85025; 85379; 93005; 96372; 99284